=== PATIENT | male | born 2000 | race Hispanic/Latino ===

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

== ENCOUNTER 2020-05-04 02:39 | Emergency (ER) | payer SELFPAY ==
[~2020-05-04] VITALS: Ht 188 cm; Wt 154.4 kg
[~2020-05-04 02:39] MED LIST changes: +KEFLEX500 MG PO; +PERCOCET 5/325M1 TAB PO
[2020-05-04 03:29] LABS: HEMATOCRIT 43.2 % (39.0-50.0); HEMOGLOBIN 14.3 g/dl (14.0-18.0); IMMATURE GRANULOCYTES 0.9 % (0.0-5.0); MEAN CORPUSCULAR HGB 29.7 pG CALC (26.0-32.0); MEAN CORPUSCULAR HGB CONC 33.1 g/dL CAL (32.0-36.0); NEUT# 7.03 thou/uL (1.82-7.42); RED BLOOD COUNT 4.81 mill/uL (4.70-6.10); RED CELL DISTRI WIDTH 13.1 % (11.5-15.5)
[2020-05-04 03:31] LABS: MEAN CELL VOLUME 89.8 fL CALC (80.0-100.0)
[2020-05-04 03:58] LABS: ACT PARTIAL THROMBO TIME 26.1 SECONDS (20.0-32.5); PROTHROMBIN TIME 9.9 SECONDS (9.0-12.5)
[2020-05-04 04:30] VITALS: BP 164/77
== END 2020-05-04 04:33 | disposition home or self-care (01) | DRG 730 ==
LOC: ED 02:39
PROVIDERS: Family Medicine
DX: N48.89 Other specified disorders of penis (principal)

== ENCOUNTER 2020-12-26 04:59 | Emergency (ER) | payer SELFPAY ==
[~2020-12-26] VITALS: Ht 190.5 cm; Wt 159.0 kg
[2020-12-26] MEDS ORDERED: NAPROXEN500 MG PO (06:06)
[2020-12-26 06:23] VITALS: BP 140/76
== END 2020-12-26 06:22 | disposition home or self-care (01) | DRG 605 ==
LOC: ED 04:59
DX: S50.12XA Contusion of left forearm, initial encounter (principal); X50.0XXA Overexertion from strenuous movement or load, initial encounter; Y93.89 Activity, other specified; Y92.89 Other specified places as the place of occurrence of the external cause; Y99.0 Civilian activity done for income or pay

== ENCOUNTER 2021-05-31 06:58 | Emergency (ER) | payer SELFPAY ==
[~2021-05-31] VITALS: Ht 190.5 cm; Wt 158.7 kg
[~2021-05-31 06:58] MED LIST changes: +NAPROXEN500 MG PO
[2021-05-31] MEDS ORDERED: MOTRIN200 MG PO (07:49)
[2021-05-31] MEDS ORDERED: ULTRAM50 MG PO (08:21)
[2021-05-31 08:30] VITALS: BP 156/74
== END 2021-05-31 08:35 | disposition home or self-care (01) | DRG 563 ==
LOC: ED 06:58
DX: S83.91XA Sprain of unspecified site of right knee, initial encounter (principal); X58.XXXA Exposure to other specified factors, initial encounter

== ENCOUNTER 2022-01-20 06:50 | Emergency (ER) | payer SELFPAY ==
[~2022-01-20] VITALS: Ht 190.5 cm; Wt 159.1 kg
[~2022-01-20 06:50] MED LIST changes: +MOTRIN200 MG PO; +ULTRAM50 MG PO
[2022-01-20 06:55] VITALS: BP 151/84
[2022-01-20 07:00] VITALS: BP 150/90
[2022-01-20 07:16] VITALS: BP 145/94
[2022-01-20 07:25] LABS: HEMATOCRIT 40.5 % (39.0-50.0); HEMOGLOBIN 13.4 g/dl (14.0-18.0); IMMATURE GRANULOCYTES 0.9 % (0.0-5.0); MEAN CELL VOLUME 87.9 fL CALC (80.0-100.0); MEAN CORPUSCULAR HGB 29.1 pG CALC (26.0-32.0); MEAN CORPUSCULAR HGB CONC 33.1 g/dL CAL (32.0-36.0); NEUT# 5.91 thou/uL (1.82-7.42); RED BLOOD COUNT 4.61 mill/uL (4.70-6.10)
[2022-01-20 07:53] LABS: ALBUMIN 4.1 g/dL (3.2-5.0); ALKALINE PHOSPHATASE 105 u/l (38-126); ANION GAP 13 (6-22 (CALC)); BUN 14 mg/dL (9-20); BUN/CREATININE RATIO 28 (12-20 (CALC)); CARBON DIOXIDE 24 mmol/l (22-30); CHLORIDE 103 mmol/l (95-108); CREATININE 0.5 mg/dL (0.7-1.3); GFR FOR AFR.AMER. > 60 ML/MIN (>=60 (CALC)); GFR OTHER RACES > 60 ML/MIN (>=60 (CALC)); POTASSIUM 4.3 mmol/l (3.5-5.1); SGOT/AST 34 u/l (17-59); SODIUM 137 mmol/l (137-146); TOTAL PROTEIN 7.5 g/dL (6.3-8.2)
[2022-01-20 08:04] LABS: BILIRUBIN, TOTAL 0.2 mg/dL (0.0-1.4)
[2022-01-20 08:05] LABS: MYOGLOBIN 34 ng/mL (0 - 121)
[2022-01-20 08:06] LABS: D-DIMER 0.25 mg/L (0.19-0.60)
[2022-01-20 08:13] VITALS: BP 143/70
[2022-01-20 08:17] VITALS: BP 120/65
[2022-01-20 08:18] LABS: ACT PARTIAL THROMBO TIME 25.6 SECONDS (20.0-32.5); INTERNATIONAL NORMALIZED RATIO 0.9 RATIO (0.7-1.3)
[2022-01-20] MEDS ORDERED: TORADOL PO (08:27)
[2022-01-20 08:36] VITALS: BP 120/65
== END 2022-01-20 08:50 | disposition home or self-care (01) | DRG 153 ==
LOC: ED 06:50
PROVIDERS: Family Medicine
DX: J06.9 Acute upper respiratory infection, unspecified (principal); R05.9 Cough, unspecified; R09.1 Pleurisy

== ENCOUNTER 2022-06-08 11:17 | Emergency (ER) | payer SELFPAY ==
[~2022-06-08] VITALS: Ht 190.5 cm; Wt 158.0 kg
[~2022-06-08 11:17] MED LIST changes: +TORADOL PO
[2022-06-08 11:50] VITALS: BP 165/79
[2022-06-08 13:32] VITALS: BP 165/79
== END 2022-06-08 13:35 | disposition home or self-care (01) | DRG 556 ==
LOC: ED 11:17
DX: M25.571 Pain in right ankle and joints of right foot (principal); X50.9XXA Other and unspecified overexertion or strenuous movements or postures, initial encounter